=== PATIENT | male | born 1960 | race Caucasian/White ===

== ENCOUNTER 2018-08-29 12:29 | Emergency (ER) | payer OTHER, MEDICAID ==
[2018-08-29] MEDS: SILVER SULFADIAZINE 1% 25 GM CR TOP (14:02)
== END 2018-08-29 15:32 | disposition home or self-care (01) ==
LOC: FTE 12:29
DX: E11.621 Type 2 diabetes mellitus with foot ulcer (principal); L97.519 Non-pressure chronic ulcer of other part of right foot with unspecified severity; Z79.84 Long term (current) use of oral hypoglycemic drugs
CPT/HCPCS: 99283

== ENCOUNTER 2018-08-31 13:09 | Emergency (ER) | payer OTHER, MEDICAID | END 2018-08-31 14:12 | disposition home or self-care (01) | LOC: E/R 13:09 | DX: Z48.01 Encounter for change or removal of surgical wound dressing (principal); E11.9 Type 2 diabetes mellitus without complications; Z79.84 Long term (current) use of oral hypoglycemic drugs | CPT/HCPCS: 99281 ==

== ENCOUNTER 2019-01-23 10:00 | Emergency (ER) | payer OTHER, MEDICAID ==
[2019-01-23] MEDS: ACYCLOVIR 400 MG TAB PO (11:18)
[2019-01-23] MEDS: predniSONE 20 MG TAB PO (11:18)
== END 2019-01-23 14:11 | disposition home or self-care (01) ==
LOC: E/R 10:00
DX: G51.0 Bell's palsy (principal); I10 Essential (primary) hypertension; E11.9 Type 2 diabetes mellitus without complications; Z79.84 Long term (current) use of oral hypoglycemic drugs
CPT/HCPCS: 70450; 99284-25